=== PATIENT | female | born 1955 | race Caucasian/White ===

== ENCOUNTER 2017-04-18 06:42 | Day surgery (SDC) | payer BC ==
[~2017-04-18 06:42] MED LIST: ALLE60TA PO; ALPR.5; CETI5CHW PO; CYCL-36 PO; MELO7.5 PO; MICA40TA2 PO
[2017-04-18] MEDS ORDERED: LACTATED RINGER'S 1000 ML IV PRN (08:00)
[2017-04-18] MEDS ORDERED: POVIDONE IODINE 5% (ANTISEPSIS KIT) 4 APPLICATIONS EACH NARE PRN (08:00)
[2017-04-18] MEDS ORDERED: CHLORHEXIDINE GLUCONATE 2 % 1 PACK (2 CLOTHS) TOPICAL PRN (08:00)
[2017-04-18] MEDS ORDERED: SODIUM CHLORID 0.9% 500 ML IV PRN (08:00)
[2017-04-18] MEDS ORDERED: METOPROLOL TARTRATE 25 MG TAB PO PRN (08:00)
[2017-04-18] MEDS ORDERED: INSULIN HUMAN REGULAR 1,000 UNITS/10 ML VIAL SQ PRN (08:00)
--- NOTE | 2017-04-18 08:36 | ECHRPT ---
Indication: CONCLUSIONS 1.) Ef=60%, normal lv wall thickness and chamber size 2.) Thickened aortic valve leaflets with mild IA 3.) No evidence of cse, paulina well imaged and appears normal 3.) Negative saline contrast bubble study for right to left shunt 4.) Normal appearingascending and descending thoracic aorta 5.) Questionable small membranous ventricular septal defect vs AI. 6.) RV Adalgisa poorly imaged but do not appear enlarged BP: / HR: Rhythm: Technical Quality: Medications Complications Proc. Components Joel Dykes MD, FACC, FSCAI (Electronically Signed) Final Date:18 April 2017 08:35
== END 2017-04-18 09:02 | disposition home or self-care (01) ==
LOC: HSDC 06:42 → HDIC 06:44 → HSDC 09:02
PROVIDERS: ATTEND Internal Medicine Interventional Cardiology
DX: I35.8 Other nonrheumatic aortic valve disorders (principal); G45.9 Transient cerebral ischemic attack, unspecified
CPT/HCPCS: 93312; 93320; 93325; J7040